=== PATIENT | male | born 1965 | race Caucasian/White ===

== ENCOUNTER 2018-05-19 08:53 | Emergency (ER) | payer OTHER ==
[~2018-05-19] VITALS: Ht 185.4 cm; Wt 129.7 kg
[2018-05-19] MEDS ORDERED: LISINOPRIL10 MG PO (09:03)
[2018-05-19] MEDS ORDERED: LIPITOR10 MG PO (09:03)
[2018-05-19] MEDS ORDERED: LOVASTATIN20 MG PO (09:03)
[2018-05-19] MEDS ORDERED: LOSARTAN POTASS50 MG PO (09:04)
[2018-05-19] MEDS ORDERED: CARVEDILOL6.25 MG PO (09:04)
[2018-05-19] MEDS ORDERED: FLOMAX0.4 MG PO (13:49)
[2018-05-19] MEDS ORDERED: NORCO 7.5-3251 EACH PO (13:49)
== END 2018-05-19 14:05 | disposition home or self-care (01) ==
LOC: ED 08:53
DX: N13.2 Hydronephrosis with renal and ureteral calculous obstruction (principal); I10 Essential (primary) hypertension; E78.5 Hyperlipidemia, unspecified; Z90.49 Acquired absence of other specified parts of digestive tract; Z79.899 Other long term (current) drug therapy
CPT/HCPCS: 74176; 80053; 81001; 85025; 96374; 96375; 99284-25; J1170; J1885; J7030

== ENCOUNTER 2020-12-30 12:49 | Day surgery (SDC) | payer OTHER ==
[~2020-12-30] VITALS: Ht 185.4 cm; Wt 130.0 kg
[~2020-12-30 12:49] MED LIST: CARVEDILOL6.25 MG PO; FLOMAX0.4 MG PO; LIPITOR10 MG PO; LISINOPRIL10 MG PO; LOSARTAN POTASS50 MG PO; LOVASTATIN20 MG PO; NORCO 7.5-3251 EACH PO
--- NOTE | 2020-12-30 15:09 | NUR ---
12/30/20 1509 Sheets,Sury 1500 PT ARRIVED TO PACU AND 3L VIA NC, PT DENIES PAIN AND NAUSEA. VSS. PT EASIYL FALLS ASLEEP OFF AND ON.
--- NOTE | 2020-12-31 13:25 | PATH ---
[facility] [address], [place] [address] Signed SPECIMEN(S): A COLON POLYP AT 80 CM SPECIMEN(S): B SPLENIC FLEXURE POLYP SPECIMEN(S): C COLON POLYP AT 70 CM SPECIMEN(S): D COLON POLYP AT 50 CM SPECIMEN SOURCE: A. COLON POLYP AT 80 CM B. SPLENIC FLEXURE POLYP C. COLON POLYP AT 70 CM D. COLON POLYP AT 50 CM CLINICAL HISTORY: Screening colonoscopy. Postop: Multiple polyps. MICROSCOPIC DESCRIPTION: Histologic sections of all submitted blocks are examined by light microscopy. These findings, together with the gross examination, support the pathologic diagnosis. FINAL PATHOLOGIC DIAGNOSIS: A. Colon, 80 cm, polypectomy: - Tubular adenoma. B. Colon, splenic flexure, polypectomy: - Tubular adenoma. C. Colon, 70 cm, polypectomy: - Tubular adenoma. D. Colon, 50 cm, polypectomy: - Tubular adenoma. P:[facility]:C2NR GROSS DESCRIPTION: Four specimens are received in four containers, labeled "TS." A. The specimen, labeled "TS, 1," and designated on the requisition "colon polyp at 80 cm," is received in formalin and consists of four james soft tissue fragments that measure 0.3-0.5 cm in greatest dimension. The specimen is entirely submitted in cassette (A1). B. The specimen, labeled "TS, 2," and designated on the requisition "splenic flexure polyp," is received in formalin and consists of one james soft tissue fragment that measures 0.3 cm in greatest dimension. The specimen is entirely submitted in cassette (B1). C. The specimen, labeled "TS, 3," and designated on the requisition "colon polyp at 70 cm," is received in formalin and consists of three polypoid james PATIENT NAME: ORLANDO MORALES PATHOLOGY DATE OF : 63 REPORT #: [id number] PHYSICIAN: CLARITZA PATHOLOGY PCP: OBDULIO SANCHEZ MD REPORT IS CONFIDENTIAL AND NOT TO BE RELEASED WITHOUT AUTHORIZATION [facility] [address], [place] [address] Signed soft tissue fragments that measure 0.3-0.5 cm in greatest dimension. The specimen is entirely submitted in cassette (C1). D. The specimen, labeled "TS, 4," and designated on the requisition "colon polyp at 50 cm," is received in formalin and consists of two james soft tissue fragments that measure 0.3-0.4 cm in greatest dimension. The specimen is entirely submitted in cassette (D1). AT (under the direct supervision of a pathologist) The Gross Description was prepared using a voice recognition system. The report was reviewed for accuracy; however, sound-alike word errors, addition and/or deletions may occur. If there is any question about this report, please contact Client Services. PERFORMING LABORATORY: The technical component was performed by [employer], [address] [place] [id number] (Personnel Security Assistant: Maricruz Underwood MD; CLIA# [id number]). The professional interpretation was performed by [employer], [facility], [address] [place] [address]. Diagnostician: Elias Johnson MD Pathologist Electronically Signed 12/31/2020 Copies: ~ PATIENT NAME: ORLANDO MORALES PATHOLOGY DATE OF : 63 REPORT #: [id number] PHYSICIAN: CLARITZA PATHOLOGY PCP: OBDULIO SANCHEZ MD REPORT IS CONFIDENTIAL AND NOT TO BE RELEASED WITHOUT AUTHORIZATION
--- NOTE | 2021-01-03 10:04 | OR ---
[facility] [address] [place], [place] [address] Signed DATE OF OPERATION: 12/30/2020 SURGEON: Yesi Kumar MD PREOPERATIVE DIAGNOSIS: Colon screening. POSTOPERATIVE DIAGNOSIS: Polyps x4. PROCEDURE: Total colonoscopy to cecum with cold snare polypectomy x3 and cold morcellation polypectomy x1. ANESTHESIA: Intravenous sedation, fentanyl 150 mcg and versed 8 mg. INDICATION: This 55-year-old white man is a patient of Obdulio Gong who is here for colon screening. He has no symptoms of bleeding, diarrhea or constipation and no family history of colon cancer. He is admitted at this time to undergo colonoscopy. He understands the risks of bleeding, infection, and perforation. FINDINGS: The prep was excellent. Complete colonoscopy was undertaken to the cecum without question. He had four polyps in total, one at 80 cm, another at the splenic flexure, another at 70 cm and other at 50 cm. All were excised completely. DESCRIPTION OF PROCEDURE: The patient was brought to the endoscopy suite and placed in lateral decubitus position, given intravenous sedation to the point of slurred speech and nystagmus. Digital rectal examination was normal. An Olympus video colonoscope was passed in the rectum and manipulated throughout the colon. At approximately 80 cm from the anal verge were two polyps directly opposed to each other. They were sessile and about 6 mm in size. Both were excised with cold snare technique. Only one of them could be retrieved. The scope was passed beyond the splenic flexure, ultimately to the cecum. Ileocecal valve and appendiceal orifice were normal. Scope was withdrawn. Examination throughout showed no sign of abnormality until the site of biopsies at the 80 cm tricia. Further withdrawal showed another small polyp Electronically Signed By: YESI KUMAR MD 01/03/21 1004 PATIENT NAME: ORLANDO MORALES OPERATIVE REPORT DATE OF : 63 REPORT #: [id number] PHYSICIAN: YESI KUMAR MD PCP: OBDULIO GONG MD REPORT IS CONFIDENTIAL AND NOT TO BE RELEASED WITHOUT AUTHORIZATION [facility] [address], [place] [address] Signed deemed splenic flexure, which was excised with cold snare technique as well. The scope was further withdrawn and at 70 cm a smaller polyp was excised with cold morcellation technique. Further withdrawal to the sigmoid at about 50 cm showed a sessile polyp, it too was excised with cold snare technique. The scope was withdrawn and removed and the patient was taken to the recovery room in good condition. CONCLUDING DIAGNOSIS: Polyps excised x5, recovered x4. PLAN: Recommend repeat colonoscopy in 3 years, sooner if symptoms should occur. We will assess his pathology report. If serrated features are noted, colonoscopy would be done sooner. He will return to the ongoing care of Obdulio Gong. MD ERIC Cuello/JAK /[id number] cc: Obdulio Gong MD Copies: OBDULIO GONG MD ~ Electronically Signed By: YESI KUMAR MD 01/03/21 1004 PATIENT NAME: ANDREWORLANDOAlonso PAUL SAMSON OPERATIVE REPORT DATE OF : 63 REPORT #: [id number] PHYSICIAN: YESI KUMAR MD PCP: OBDULIO GONG MD REPORT IS CONFIDENTIAL AND NOT TO BE RELEASED WITHOUT AUTHORIZATION
== END 2020-12-30 15:47 | disposition home or self-care (01) ==
LOC: DS 12:49 → OPS 12:49 → DS 14:00 → OPS 15:47
PROVIDERS: ATTEND Surgery
PROC: 0DBP8ZZ Excision of Rectum, Via Natural or Artificial Opening Endoscopic (ICD-10-PCS; 2020-12-30)
PROC: 0DBL8ZZ Excision of Transverse Colon, Via Natural or Artificial Opening Endoscopic (ICD-10-PCS; principal; 2020-12-30 14:00)
DX: Z12.11 Encounter for screening for malignant neoplasm of colon (principal); D12.5 Benign neoplasm of sigmoid colon; D12.3 Benign neoplasm of transverse colon; E78.5 Hyperlipidemia, unspecified; I10 Essential (primary) hypertension
CPT/HCPCS: 99153; G0500; J2250; J3010; J7121

== ENCOUNTER 2023-06-24 12:13 | Emergency (ER) | payer OTHER ==
[~2023-06-24] VITALS: Ht 185.4 cm; Wt 139.7 kg
[2023-06-24] MEDS ORDERED: GLIMEPIRIDE1 MG PO (12:35)
[2023-06-24] MEDS ORDERED: KETOROLAC TROMETHAMINE 60 MG/2 ML VIAL IM ONE (12:45)
[2023-06-24] MEDS ORDERED: MORPHINE SULFATE 10 MG/ML VIAL IM ONE (12:45)
[2023-06-24] MEDS ORDERED: CYCLOBENZAPRINE10 MG PO (13:51)
[2023-06-24] MEDS ORDERED: CELEBREX200 MG PO (13:51)
[2023-06-24 14:29] VITALS: BP 137/96
== END 2023-06-24 14:28 | disposition home or self-care (01) ==
LOC: ED 12:13
DX: S83.91XA Sprain of unspecified site of right knee, initial encounter (principal); I10 Essential (primary) hypertension; E78.5 Hyperlipidemia, unspecified; Z79.84 Long term (current) use of oral hypoglycemic drugs; Z79.899 Other long term (current) drug therapy; X50.9XXA Other and unspecified overexertion or strenuous movements or postures, initial encounter; Y93.89 Activity, other specified; Y99.0 Civilian activity done for income or pay
CPT/HCPCS: 73700; 96372; 99283-25; J1885; J2270

== ENCOUNTER 2024-02-14 06:40 | Day surgery (SDC) | payer OTHER ==
[2024-02-09 16:04] VITALS: BP 146/90
[~2024-02-14] VITALS: Ht 185.4 cm; Wt 131.8 kg
[~2024-02-14 06:40] MED LIST changes: +CELEBREX200 MG PO; +CYCLOBENZAPRINE10 MG PO; +GLIMEPIRIDE1 MG PO; +LACTATED RINGER'S 1,000 ML IV SCH
[2024-02-14 06:56] VITALS: BP 167/95
[2024-02-14] MEDS ORDERED: IBLOOD GLUCOSE TEST STRIP 1 EA TEST VI PRN ×2 (07:00→11:00)
[2024-02-14] MEDS ORDERED: LIDOCAINE HCL 1% 5 ML SDV INJ ONE (07:00)
[2024-02-14] MEDS ORDERED: CEFAZOLIN SODIUM 2 GM/20 ML SYR IV SCH (07:00)
[2024-02-14] MEDS ORDERED: CEFAZOLIN SODIUM 3 GM/30 ML SYR IV SCH (07:00)
[2024-02-14] MEDS ORDERED: FIBER (07:06)
[2024-02-14] MEDS ORDERED: iopamidoL 30 ML VIAL ONE (08:40)
[2024-02-14] MEDS ORDERED: fentaNYL citrate 100 MCG/2 ML VIAL ONE (08:47)
[2024-02-14] MEDS ORDERED: ondansetron HCL 4 MG/2 ML VIAL ONE (08:48)
[2024-02-14] MEDS ORDERED: LIDOCAINE HCL 2% 5 ML SDV ONE (08:48)
[2024-02-14] MEDS ORDERED: KETOROLAC TROMETHAMINE 30 MG/ML VIAL ONE (08:48)
[2024-02-14] MEDS ORDERED: DEXAMETHASONE SOD PHOS 4 MG/ML VIAL ONE (08:48)
[2024-02-14] MEDS ORDERED: ACETAMINOPHEN 1,000 MG/100 ML VIAL ONE (08:48)
[2024-02-14] MEDS ORDERED: propofoL 200 MG/20 ML VIAL ONE (08:48)
[2024-02-14] MEDS ORDERED: ondansetron HCL 4 MG/2 ML VIAL IV PRN ×2 (09:00→11:00)
[2024-02-14] MEDS ORDERED: OXYCODONE/APAP 5/325 TAB PO PRN (09:00)
[2024-02-14] MEDS ORDERED: HYDROmorphone HCL 1 MG/ML SYR IV PRN (09:00)
[2024-02-14] MEDS ORDERED: PHENAZOPYRIDINE HCL 95 MG TAB PO PRN (09:00)
[2024-02-14] MEDS ORDERED: KETOROLAC TROMETHAMINE 30 MG/ML VIAL IV PRN (09:00)
[2024-02-14] MEDS ORDERED: ePHEDrine sulfate 50 MG/ML AMP ONE (09:26)
[2024-02-14] MEDS ORDERED: GLYCOPYRROLATE 1 MG/5 ML MDV ONE (09:50)
[2024-02-14] MEDS ORDERED: SODIUM CHLORIDE 0.9% 40 ML IV ONE (10:51)
[2024-02-14] MEDS ORDERED: NALOXONE HCL 0.4 MG SYR IV PRN (11:00)
[2024-02-14] MEDS ORDERED: fentaNYL citrate 50 MCG/ML SDV IV PRN (11:00)
--- NOTE | 2024-02-14 11:38 | NUR ---
02/14/24 1138 Anitra Winn PATIENT IS RESPONDING TO MY VOICE UPON ARRIVAL TO PACU. HE REPOSITIONS HIMSELF ONTO HIS LEFT SIDE. HE DENIES PAIN AND NAUSEA.
[2024-02-14 12:05] VITALS: BP 150/92
--- NOTE | 2024-02-14 12:19 | NUR ---
1205-PT ARRIVED BACK TO DS DROWSY ON RA, BUT EASILY AROUSED. PT ANSWERS QUESTIONS APPROPRIATELY. AT BEDSIDE. VS TAKEN. BP ELEVATED AT PTS BASELINE. IV SITE ASSESSED, PATENT, AND INFUSING LR PER ORDERS. URETHRAL OPENING OBSERVED AND NO BLEEDING OR DRAINAGE NOTED. PT DENIES BOTH PAIN AND NAUSEA WHEN ASKED. PT DECLINES FOOD OR FLUIDS WHEN OFFERED. PT REPORTING HE WOULD LIKE TO SLEEP A LITTLE LONGER AND THAT HE STILL FEELS GROGGY. ALL QUESTIONS ANSWERED. BED IN LOW POSITION, WHEELS LOCKED, CALL LIGHT WITHIN PT REACH, AND BILAT RAILS IN PLACE FOR SAFETY.
--- NOTE | 2024-02-14 12:41 | NUR ---
1230-INTO PTS ROOM FOR REASSESSMENT. PT APPEARS LESS DROWSY AND AGREES TO EAT SOME JELLO AND RASHI CRACKERS AND TRY SOME WATER. PT ALSO REPORTS SOME BLADDER PAIN AND RATES AT 5/10. HOB ELEVATED TO APPROX 45 DEGREES AND PT GIVEN RASHI CRACKERS, JELLO, AND ICE WATER. LEFT TO TAKE RX'S TO PHARMACY. 1235-PO PAIN MEDS AND PYRIDIUM GIVEN PER EMAR FOR C/O BLADDER PAIN. CALL LIGHT WITHIN PT REACH. BED IN LOW POSITION, WHEELS LOCKED, AND BILAT RAILS IN PLACE FOR SAFETY.
[2024-02-14] MEDS ORDERED: CIPRO500 MG PO (12:47)
[2024-02-14] MEDS ORDERED: OXYCODONE HCL5 MG PO (12:50)
[2024-02-14] MEDS ORDERED: PYRIDIUM200 MG PO (12:51)
[2024-02-14 13:05] VITALS: BP 141/87
--- NOTE | 2024-02-14 13:30 | NUR ---
1305-INTO PTS ROOM FOR ROUTINE REASSESSMENT. VS TAKEN. PT ATE ALL OF HIS JELLO AND RASHI CRACKERS AND DRANK APPROX 300ML OF ICE WATER. PT DENIES NAUSEA WHEN ASKED. NO DRAINAGE SEEN FROM URETHRA. PT AAOX3 AND ABLE TO MAKE HIS NEEDS KNOWN. IV SITE ASSESSED. PT REPORTS PAIN DOWN TO 3/10 AFTER PO PAIN MEDS AND PYRIDIUM GIVEN PREVIOUSLY. PT REPORTS THIS TO BE A TOLERABLE LEVEL FOR HIM. RETURNED FROM TAKING RX'S TO PHARMACY. PT REPORTS SOME PRESSURE FELT IN BLADDER. SUGGESTED TRYING TO VOID. PT AGREEABLE. PT UP TO EOB AND DENIES DIZZINESS OR LIGHTHEADEDNESS. PT AMBULATED TO RESTROOM WITH RN SBA FOR SAFETY. 1320-PT ABLE TO VOID APPROX 400ML OF RED URINE WITH S FEW SMALL BLOOD CLLOTS NOTED. PT REPORTS RELIEF IN BLADDER PRESSURE/DISCOMFORT WITH VOIDING. PT AMBULATED BACK TO ROOM WITH RN SBA FOR SAFETY. PT SITTING ON EOB WITH CALL LIGHT WITHIN REACH AND AT SIDE WITH PERSONAL BELONGINGS TO HELP PT DRESS FOR DISCHARGE. 1330-INTO PTS ROOM FOR DC TEACHING. PT INFORMED THAT CAT SCAN NEEDS DONE IN 1 WEEK AND F/U APPT IN [address]. PT INFORMED THAT [address] MENDEZ OFFICE WILL CONTACT HIM IN IN THE NEXT COUPLE DAYS TO SET UP, BUT THAT IF HE HAS NOT HEARD FROM THEM BY WEDNESDAY MORNING HE MAY CALL HER OFFICE TO ARRANGE. PT VERBALIZED UNDERSTANDING OF ALL DC INSTRUCTIONS. ALL QUESTIONS WERE ANSWERED.
[2024-02-14] MEDS ORDERED: SEVOFLURANE 250 ML BTL INH ONE (13:37)
--- NOTE | 2024-02-14 13:45 | NUR ---
1345- LEFT TO PULL CAR AROUND FRONT OF HOSPITAL. IV REMOVED. TIP OBSERVED TO BE INTACT. PRESSURE DRSG APPLIED WITH GAUZE AND COBAN.
--- NOTE | 2024-02-14 13:50 | NUR ---
PT DISCHARGED FROM DS VIA WC TO PASSENGER SIZE OF WIFES VEHICLE. ALL PERSONAL BELONGINGS TAKEN WITH PT.
[2024-02-18 08:03] LABS: CALCULI MASS 297 mg (())
== END 2024-02-14 13:50 | disposition home or self-care (01) ==
LOC: OPS 06:40 → DS 06:40 → OPS 09:00
PROVIDERS: ATTEND Urology
PROC: 0T7B8DZ Dilation of Bladder with Intraluminal Device, Via Natural or Artificial Opening Endoscopic (ICD-10-PCS; 2024-02-14)
PROC: BT14ZZZ Fluoroscopy of Kidneys, Ureters and Bladder (ICD-10-PCS; 2024-02-14)
PROC: 0TC18ZZ Extirpation of Matter from Left Kidney, Via Natural or Artificial Opening Endoscopic (ICD-10-PCS; principal; 2024-02-14 08:45)
PROC: 0TC08ZZ Extirpation of Matter from Right Kidney, Via Natural or Artificial Opening Endoscopic (ICD-10-PCS; 2024-02-14 08:45)
DX: N20.0 Calculus of kidney (principal); E11.9 Type 2 diabetes mellitus without complications; E78.00 Pure hypercholesterolemia, unspecified; I10 Essential (primary) hypertension; G47.33 Obstructive sleep apnea (adult) (pediatric); Z79.84 Long term (current) use of oral hypoglycemic drugs; Z79.899 Other long term (current) drug therapy
CPT/HCPCS: 00910; 74420; 74450; 82365; C1769; C2617; J0131; J0690; J1100; J1885; J2405; J2704; J3010; J7121; Q9958

== ENCOUNTER 2024-02-29 11:56 | Day surgery (SDC) | payer OTHER ==
[~2024-02-29] VITALS: Ht 185.4 cm; Wt 115.7 kg
[~2024-02-29 11:56] MED LIST changes: +CEFAZOLIN SODIUM 2 GM/20 ML SYR IV SCH; +CIPRO500 MG PO; +FIBER; +IBLOOD GLUCOSE TEST STRIP 1 EA TEST VI PRN; +LIDOCAINE HCL 1% 5 ML SDV INJ ONE; +OXYCODONE HCL5 MG PO; +PYRIDIUM200 MG PO; +iopamidoL 30 ML VIAL ONE
[2024-02-29 12:14] VITALS: BP 149/88
[2024-02-29] MEDS ORDERED: PHENAZOPYRIDINE HCL 95 MG TAB PO PRN (12:45)
[2024-02-29] MEDS ORDERED: ondansetron HCL 4 MG/2 ML VIAL IV PRN ×2 (12:45→15:45)
[2024-02-29] MEDS ORDERED: KETOROLAC TROMETHAMINE 30 MG/ML VIAL IV PRN (12:45)
[2024-02-29] MEDS ORDERED: OXYCODONE/APAP 5/325 TAB PO PRN (12:45)
[2024-02-29] MEDS ORDERED: HYDROmorphone HCL 1 MG/ML SYR IV PRN (12:45)
[2024-02-29] MEDS ORDERED: SEVOFLURANE 250 ML BTL INH ONE (13:38)
[2024-02-29] MEDS ORDERED: fentaNYL citrate 100 MCG/2 ML VIAL ONE (15:01)
[2024-02-29] MEDS ORDERED: ondansetron HCL 4 MG/2 ML VIAL ONE (15:02)
[2024-02-29] MEDS ORDERED: DEXAMETHASONE SOD PHOS 4 MG/ML VIAL ONE (15:02)
[2024-02-29] MEDS ORDERED: ACETAMINOPHEN 1,000 MG/100 ML VIAL ONE (15:02)
[2024-02-29] MEDS ORDERED: propofoL 200 MG/20 ML VIAL ONE (15:02)
[2024-02-29] MEDS ORDERED: LIDOCAINE HCL 2% 5 ML SDV ONE ×2 (15:02→15:10)
[2024-02-29] MEDS ORDERED: KETOROLAC TROMETHAMINE 30 MG/ML VIAL ONE (15:02)
[2024-02-29] MEDS ORDERED: ePHEDrine sulfate 50 MG/ML AMP ONE (15:42)
[2024-02-29] MEDS ORDERED: NALOXONE HCL 0.4 MG SYR IV PRN (15:45)
[2024-02-29] MEDS ORDERED: fentaNYL citrate 50 MCG/ML SDV IV PRN (15:45)
[2024-02-29] MEDS ORDERED: IBLOOD GLUCOSE TEST STRIP 1 EA TEST VI PRN (15:45)
--- NOTE | 2024-02-29 17:31 | NUR ---
02/29/24 1731 Dede Salvador 1702- PT ARRIVES TO THE PACU WITH A NATURAL AIRWAY. PT IS REACTIVE TO TACTILE STIMULI BUT NOT FOLLOWING DIRECTIONS. HOB INCREASED FOR LOW 90 O2 SAT TO SEMI FOWLERS. ALL MONITORS PUT IN PLACE. RESP EVEN AND UNLABORED. ABDOMEN IS SOFT AND NON DISTENDED. NO DRAINAGE NOTED TO SURGICAL SITE. PT SLIGHTLY RESTLESS AND GRABBING AT HIS FACE. RN HELPS TO PROTECT HIS FACE. 1705- PT HAS HIS BROW FURROWED AND STILL SLIGHTLY RESTLESS IN BED. RN ASKING ABOUT PAIN AND NAUSEA, PT DOES NOT ANSWER. RN CONTINUES TO REORIENT PT.
[2024-02-29 18:04] VITALS: BP 139/75
--- NOTE | 2024-02-29 18:08 | NUR ---
PATIENT ARRIVED TO THE MEDICAL FLOOR FROM SURGERY DEPT. PATIENT AWAKE, ALERT AND ORIENTED X4. PATIENT IS ON 1L OXYGEN PER NC, SP02 96%. PATIENT REPORTS TOLERABLE PAIN. STRING INTACT TO PENIS-TAPE INTACT TO HOLD IN PLACE. PATIENT HAS NO NOTABLE DISTRESS. VITAL SIGNS ARE STABLE. PATIENT ORIENTED TO ROOM AND CALL LIGHT. PERSONAL SUPPLIES AND CALL LIGHT WITHIN REACH.
[2024-02-29 19:15] VITALS: BP 141/73
--- NOTE | 2024-02-29 19:30 | NUR ---
SHIFT REPORT RECEIVED FROM HAYDEEAKURBANO IZAGUIRRE AT BEDSIDE. pt AWAKE AND RESTING IN BED, A/O X4. STRING INTACT TO PENIS-TAPE INTACT TO HOLD IN PLACE. CPOX IN PLACE, pt ON RA. RR EVEN AND UNLABORED. NO DISTRESS NOTED. REMAINS IN ROOM. IV SITE WNL, SALINE LOCKED. pt VERBALIZES EAGERNESS FOR DC ONCE DC CRITERIA IS MET-RECENTLY VOIDED, 200 MLS AND RED IN COLOR PER DIVISION PLANT ENGINEERChalino MARROQUIN. CALL LIGHT IN REACH. pt AND DENIES ADDITIONAL NEEDS OR CONCERNS.
--- NOTE | 2024-02-29 19:53 | NUR ---
THIS RN CALLED DR MENDEZ AND UPDATED MD THAT pt HAS MET DC CRITERIA. pt GIVEN PRN PAIN MEDICATION-SEE EMAR AND TOLERATING WELL. DENIES NAUSEA AND REPORTS PAIN IMPROVED. MD ALSO MADE AWARE RECENT VOID WAS 200 MLS AND RED/BLOODY IN COLOR-PER MD, EXPECTED POST OP FINDING AND OKAY TO CONTINUE WITH DC.
--- NOTE | 2024-02-29 20:10 | NUR ---
BED ALARMING. IN TO THE ROOM. PATIENT IS LYING IN BED. PATIENT STATING JUST WANT THE LIGHT TURN OFF. PATIENT GOT UP TO USE THE RESTROOM ACCOMPANIED BY THIS VP AD SALES WEST. PATIENT IS BACK IN BED. PATIENT REQUESTED SODA WITH ICE AND ICE LEMON. PROVIDED. BED ALARM ON FOR SAFETY.
--- NOTE | 2024-02-29 20:15 | NUR ---
ASSESSMENT COMPLETE, TAPE TO PENIS REMAINS UNCHANGED FROM START OF SHIFT. VERIFIED WITH IMAGING-ORDER FOR UROGRAPHY RETROGRADE XR COMPLETED IN OR. DC VSS AND CHARTED. IV DC'D-WNL AND CATHETER TIP INTACT. pt DRESSED, STEADY ON FEET AND ASSISTED TO MAIN HOSPITAL ENTRANCE VIA WC AND INTO PERSONAL VEHICLE PASSENGER SIDE- TO DRIVE pt HOME. pt AND VERBALIZED UNDERSTANDING OF WRITTEN DC INSTRUCTIONS AND REPORTS SHE ALREADY FILLED NEW SCRIPTS AND HAS THEM IN HER PURSE. MD MENDEZ VEBALIZED ON PHONE CALL EARLIER THAT pt CAN EITHER DC STRING HIMSELF ON WEDNESDAY OR CALL OFFICE AND HAVE RN DO IT-pt/ VERBALIZED UNDERSTANDING AND pt VERBALIZED HE'D PREFER TO HAVE ASSIST HIM AT HOME. AND pt AWARE TO CALL OFFICE IN AM TO SCHEDULE F/U APPOINTMENT.
[2024-02-29 20:20] VITALS: BP 120/82
--- NOTE | 2024-02-29 20:30 | NUR ---
SHIFT REPORT RECEIVED FROM HAYDEEALURBANO IZAGUIRRE AT BEDSIDE. pt AWAKE AND RESTING IN BED, A/O X4. STRING INTACT TO PENIS-TAPE INTACT TO HOLD IN PLACE. CPOX IN PLACE, pt ON RA. RR EVEN AND UNLABORED. NO DISTRESS NOTED. REMAINS IN ROOM. IV SITE WNL, SALINE LOCKED. pt VERBALIZES EAGERNESS FOR DC ONCE DC CRITERIA IS MET-RECENTLY VOIDED, 200 MLS AND RED IN COLOR PER MANAGER SUPPLIERChalino MARROQUIN. CALL LIGHT IN REACH. pt AND DENIES ADDITIONAL NEEDS OR CONCERNS.
[2024-03-01] MEDS ORDERED: CEFAZOLIN SODIUM 2 GM/20 ML SYR IV SCH (07:00)
[2024-03-02 15:26] LABS: CALCULI MASS 56 mg (())
== END 2024-02-29 20:25 | disposition home or self-care (01) ==
LOC: DS 11:56 → MS 18:10 → DS 20:25
PROVIDERS: ATTEND Urology
PROC: 0TC18ZZ Extirpation of Matter from Left Kidney, Via Natural or Artificial Opening Endoscopic (ICD-10-PCS; principal; 2024-02-29 15:00)
PROC: 0TC08ZZ Extirpation of Matter from Right Kidney, Via Natural or Artificial Opening Endoscopic (ICD-10-PCS; 2024-02-29 15:00)
DX: N20.0 Calculus of kidney (principal); E11.9 Type 2 diabetes mellitus without complications; I10 Essential (primary) hypertension; E78.00 Pure hypercholesterolemia, unspecified; G47.33 Obstructive sleep apnea (adult) (pediatric); Z79.84 Long term (current) use of oral hypoglycemic drugs; Z79.899 Other long term (current) drug therapy; Z88.8 Allergy status to other drugs, medicaments and biological substances; Z90.49 Acquired absence of other specified parts of digestive tract
CPT/HCPCS: 00910; 74420; 82365; C1769; C2617; J0131; J0690; J1100; J1885; J2003; J2405; J2704; J3010; J7121; Q9967

== ENCOUNTER 2025-03-19 07:00 | Day surgery (SDC) | payer OTHER ==
[~2025-03-19] VITALS: Ht 185.4 cm; Wt 131.8 kg
[~2025-03-19 07:00] MED LIST changes: -CEFAZOLIN SODIUM 2 GM/20 ML SYR IV SCH; +MIDAZOLAM HCL 5 MG/5 ML VIAL IV PRN; +fentaNYL citrate 100 MCG/2 ML VIAL IV PRN; -iopamidoL 30 ML VIAL ONE
[2025-03-19 07:22] VITALS: BP 128/87
[2025-03-19] MEDS ORDERED: fentaNYL citrate 100 MCG/2 ML VIAL ONE (08:37)
[2025-03-19] MEDS ORDERED: MIDAZOLAM HCL 5 MG/5 ML VIAL ONE (08:37)
--- NOTE | 2025-03-19 09:44 | NUR ---
03/19/25 0944 Florencia Tineo 0929: PT ARRIVED TO PACU VIA STRETCHER. PT REACTIVE AT THIS TIME. PT ON 3L NC. 0941: PT TITRATED TO RA AT THIS TIME.
[2025-03-19 09:46] VITALS: BP 137/83
--- NOTE | 2025-03-20 11:53 | OR ---
[facility] [address], [place] [address] Signed DATE OF OPERATION: 03/19/2025 SURGEON: Yesi Kumar MD PREOPERATIVE DIAGNOSIS: Tubular adenomas x4, 2020. POSTOPERATIVE DIAGNOSES: Pedunculated polyp x1 and sessile polyp x2. PROCEDURES: Total colonoscopy to cecum with hot snare polypectomy x1, cold morcellation polypectomy x1, and cold snare polypectomy x1. ANESTHESIA: Intravenous sedation, fentanyl 100 mcg, and Versed 7 mg. INDICATION: A 60-year-old white man, patient of Dr. Vora, underwent colonoscopy in 2020, was found to have four tubular adenomas, one of them pedunculated. He is asymptomatic and has no family history of colon cancer. He is admitted to undergo surveillance colonoscopy. He understands the risk of bleeding, infection, and perforation. FINDINGS: The prep was excellent. Complete colonoscopy was undertaken of the cecum. There was a small sessile polyp of the ascending colon, which was excised with cold snare technique. A small transverse colon polyp excised with cold morcellation technique and a pedunculated polyp of the sigmoid excised with hot snare polypectomy technique. There were no other findings of concern. DESCRIPTION OF PROCEDURE: The patient was brought to the endoscopy suite and placed in lateral decubitus position, given intravenous sedation to the point of slurred speech and nystagmus. Digital rectal examination was normal. An Olympus video colonoscope was passed in the rectum and manipulated throughout the colon ultimately intubating the cecum itself. The ileocecal valve and appendiceal orifice were normal. The scope was withdrawn and a small sessile polyp was noted behind the fold. With various manipulations, a cold snare polypectomy was performed. Specimen was passed for pathology. The scope was withdrawn. A small transverse colon polyp was Electronically Signed By: YESI KUMAR MD 03/20/25 1153 PATIENT NAME: ORLANDO MORALES OPERATIVE REPORT DATE OF : 63 REPORT #: [id number] PHYSICIAN: YESI KUMAR MD PCP: ERENDIRA VORA MD REPORT IS CONFIDENTIAL AND NOT TO BE RELEASED WITHOUT AUTHORIZATION [facility] [address], [place] [address] Signed similarly identified and excised with cold morcellation technique. Further withdrawal showed a pedunculated polyp in the sigmoid, which was excised with hot snare polypectomy technique. Complete excision was noted. Further withdrawal showed no other abnormality. The scope was removed. The patient was taken to recovery room in good condition. CONCLUDING DIAGNOSIS: Polyps x3. PLAN: Recommend repeat colonoscopy in three years or sooner if clinically indicated. He will return to the ongoing care of Dr. Vora otherwise. MD ERIC Cuello/MUSTAPHAL /[id number] cc: Erendira Vora MD Copies: ~ Electronically Signed By: YESI KUMAR MD 03/20/25 1153 PATIENT NAME: ORLANDO MORALES OPERATIVE REPORT DATE OF : 63 REPORT #: [id number] PHYSICIAN: YESI KUMAR MD PCP: ERENDIRA VORA MD REPORT IS CONFIDENTIAL AND NOT TO BE RELEASED WITHOUT AUTHORIZATION
--- NOTE | 2025-03-21 10:51 | PATH ---
[facility] [address], [place] [address] Signed SPECIMEN(S): A ASCENDING POLYP SPECIMEN(S): B TRANSVERSE POLYP SPECIMEN(S): C DESCENDING POLYP, 60 CM SPECIMEN SOURCE: A. ASCENDING POLYP B. TRANSVERSE POLYP C. DESCENDING POLYP, 60 CM CLINICAL HISTORY: History of colon polyps FINAL PATHOLOGIC DIAGNOSIS: A. Ascending polyp: - Tubular adenoma. B. Transverse polyp: - Tubular adenoma. C. Descending polyp, 60 cm: - Tubular adenoma (two fragments). JVR MICROSCOPIC EXAMINATION: Histologic sections of all submitted blocks are examined by light microscopy. These findings, together with the gross examination, support the pathologic diagnosis. GROSS DESCRIPTION: A. The specimen, labeled and designated "Smart, ascending polyp," is received in formalin and consists of one james soft tissue fragment, 0.4 cm. Entirely submitted in (A1). B. The specimen, labeled and designated "Smart, transverse polyp," is received in formalin and consists of two james soft tissue fragments, ranging from 0.1-0.4 cm. Entirely submitted in (B1). C. The specimen, labeled and designated "Smart, descending polyp, 60 cm," is received in formalin and consists of two james-brown polypoid pieces of tissue (0.6 x 0.4 x 0.4 cm, and 0.8 x 0.8 x 0.5 cm). The possible resection margins are differentially inked blue and black respectively, and the tissues are bisected to reveal pink-james to red-brown soft cut surfaces. The specimen is submitted entirely in cassette (C1). VB (under the direct supervision of a pathologist) PATIENT NAME: ORLANDO MORALES PATHOLOGY DATE OF : 63 REPORT #: [id number] PHYSICIAN: CLARITZA SIEGEL PCP: KODY ZHANG MD REPORT IS CONFIDENTIAL AND NOT TO BE RELEASED WITHOUT AUTHORIZATION [facility] [address], [place] [address] Signed The Gross Description was prepared using a voice recognition system. The report was reviewed for accuracy; however, sound-alike word errors, addition and/or deletions may occur. If there is any question about this report, please contact Client Services. ADDITIONAL NOTES: Immunohistochemical and/or in situ hybridization studies if performed in this case included appropriate positive controls that reacted as expected. This test was developed and its performance characteristics determined by [facility]. It has not been cleared or approved by the U.S. Food and Drug Administration. The FDA has determined that such clearance or approval is not necessary. This test is used for clinical purposes. It should not be regarded as investigational or for research. [facility] is certified under the Clinical Laboratory Improvement Amendments of 1988 (CLIA) as qualified to perform high complexity clinical laboratory testing. PERFORMING LABORATORY: Technical component was performed by [facility], [address] [place] [address] (CLIA# [id number]). Professional interpretation was performed by [facility] [place] [facility] - [address] [place] [address] (CLIA#: [id number]). Diagnostician: Rahul Adrian MD Pathologist Electronically Signed 03/21/2025 Copies: ~ PATIENT NAME: ORLANDO MORALES PATHOLOGY DATE OF : 63 REPORT #: [id number] PHYSICIAN: CLARITZA PATHOLOGY PCP: KODY ZHANG MD REPORT IS CONFIDENTIAL AND NOT TO BE RELEASED WITHOUT AUTHORIZATION
== END 2025-03-19 10:10 | disposition home or self-care (01) ==
LOC: DS 07:00
PROVIDERS: ATTEND Surgery
PROC: 0DBL8ZZ Excision of Transverse Colon, Via Natural or Artificial Opening Endoscopic (ICD-10-PCS; 2025-03-19)
PROC: 0DBN8ZZ Excision of Sigmoid Colon, Via Natural or Artificial Opening Endoscopic (ICD-10-PCS; 2025-03-19)
PROC: 0DBK8ZZ Excision of Ascending Colon, Via Natural or Artificial Opening Endoscopic (ICD-10-PCS; principal; 2025-03-19 08:15)
DX: Z12.11 Encounter for screening for malignant neoplasm of colon (principal); D12.2 Benign neoplasm of ascending colon; D12.3 Benign neoplasm of transverse colon; D12.4 Benign neoplasm of descending colon; I10 Essential (primary) hypertension; E78.5 Hyperlipidemia, unspecified; G47.30 Sleep apnea, unspecified; Z86.0101 Personal history of adenomatous and serrated colon polyps; Z90.49 Acquired absence of other specified parts of digestive tract
CPT/HCPCS: 99153; G0500; J2250; J3010; J7121